=== PATIENT | male | born 1970 | race Caucasian/White ===

== ENCOUNTER 2018-08-22 17:13 | Outpatient (CLI) | payer OTHER ==
[~2018-08-22 17:13] MED LIST: ASPI-496 PO; LISI2.5T PO; LOVA10TA PO; METO25TA4 PO; OMEG1CAP2 PO; PRAS10TA4 PO
[2018-08-22] MEDS ORDERED: GADOBUTROL 10 MMOL/10 ML PFS ONE (18:56)
== END 2018-08-22 23:59 | disposition home or self-care (01) ==
LOC: RAD 17:13
PROVIDERS: ATTEND Surgery
DX: K60.3 Anal fistula (principal)
CPT/HCPCS: 72197; A9585

== ENCOUNTER 2020-07-05 16:00 | Outpatient (CLI) | payer OTHER ==
[~2020-07-05 16:00] MED LIST changes: +ASPI-614 PO; +ATOR-2 PO; +CYCL5TAB PO; +FENO134C PO; +HYDR-3237 PO; +LISI5TAB7 PO; +METO-282 PO; +SENN1TAB67 PO; +ZOLP10TA PO; +[UNRECOGNIZED DRUG - CODE] PO
== END 2020-07-05 23:59 | disposition home or self-care (01) ==
LOC: STAR 16:00
PROVIDERS: ATTEND Family Medicine
DX: Z20.822 Contact with and (suspected) exposure to COVID-19 (principal)
CPT/HCPCS: U0003

== ENCOUNTER 2020-07-09 09:01 | Day surgery (SDC) | payer OTHER ==
[~2020-07-09] VITALS: Ht 185.4 cm; Wt 98.8 kg
[2020-07-09] MEDS ORDERED: ROSU40TA PO (09:35)
[2020-07-09] MEDS ORDERED: METFORMIN PO (09:35)
[2020-07-09] MEDS ORDERED: LISI-167 PO (09:35)
[2020-07-09] MEDS ORDERED: CHLORHEXIDINE 15 ML UDC PO ONE (10:00)
[2020-07-09] MEDS ORDERED: LACTATED RINGERS 1,000 ML IV SCH (10:00)
[2020-07-09 10:10] VITALS: BP 133/85
[2020-07-09] MEDS ORDERED: MIDAZOLAM 1 MG/ML, 2ML ONE (10:28)
[2020-07-09] MEDS ORDERED: FENTANYL PF 100 MCG/2ML ONE (10:29)
[2020-07-09 10:31] LABS: ALBUMIN 4.4 g/dL (3.4-5.0); ANION GAP 4 mmol/L (5-15); CALCIUM 9.3 mg/dL (8.5-10.1); CHLORIDE 108 mmol/L (98-107)
[2020-07-09 10:35] LABS: ALANINE AMINOTRANSFERASE 66 U/L (12-78); ALKALINE PHOSPHATASE 82 U/L (45-117); BILIRUBIN,TOTAL 0.6 mg/dL (0.2-1.0); CREATININE 1.24 mg/dL (0.7-1.3)
[2020-07-09] MEDS ORDERED: hydrALAzine 20 MG/ML, 1ML IV PRN (11:00)
[2020-07-09] MEDS ORDERED: METOPROLOL 1 MG/ML, 5ML IV PRN (11:00)
[2020-07-09] MEDS ORDERED: LABETALOL 5MG/ML, 20ML IV PRN (11:00)
[2020-07-09] MEDS ORDERED: OXYcodone 5 MG/5 ML ORAL.SOL UDC PO PRN (11:00)
[2020-07-09] MEDS ORDERED: ALBUTEROL/IPRATROPIUM 2.5MG/0.5MG, 3 ML NPPB PRN (11:00)
[2020-07-09] MEDS ORDERED: ONDANSETRON 2MG/ML, 2ML IVPush PRN (11:00)
[2020-07-09] MEDS ORDERED: PROMETHAZINE 25 MG/ML, 1ML IVPush PRN (11:00)
[2020-07-09] MEDS ORDERED: ACETAMINOPHEN 325 MG TABLET PO PRN (11:00)
[2020-07-09] MEDS ORDERED: HALOPERIDOL 5 MG/ML IV PRN (11:00)
[2020-07-09] MEDS ORDERED: FENTANYL PF 100 MCG/2ML IV PRN (11:00)
[2020-07-09] MEDS ORDERED: HYDROmorphone 1 MG/ML, 1ML INJ IVPush PRN (11:00)
[2020-07-09] MEDS ORDERED: KETOROLAC 30 MG/1 ML IVPush PRN (11:00)
[2020-07-09] MEDS ORDERED: EPHEDRINE 50 MG/ML, 1ML IVPush PRN (11:00)
[2020-07-09] MEDS ORDERED: METHOCARBAMOL 1,000 MG in DEXTROSE 5% 100 ML IV PRN (11:00)
[2020-07-09] MEDS ORDERED: METOCLOPRAMIDE 5 MG/ML, 2ML IVPush PRN (11:00)
[2020-07-09] MEDS ORDERED: DEXMEDETOMIDINE 200 MCG/2 ML ONE (11:03)
[2020-07-09] MEDS ORDERED: PHENYLEPHRINE 10 MG/ML ONE (11:17)
[2020-07-09] MEDS ORDERED: PROPOFOL 10 MG/ML, 20ML ONE (11:17)
[2020-07-09] MEDS ORDERED: GADOTERATE 10 MMOL/20 ML VIAL ONE (12:14)
[2020-07-09] MEDS ORDERED: ACETAMINOPHEN 650 MG/20.3 ML UDC ONE (12:59)
[2020-07-09] MEDS ORDERED: OXYcodone 5 MG/5 ML ORAL.SOL UDC ONE (12:59)
== END 2020-07-09 14:50 | disposition home or self-care (01) ==
LOC: OUT 09:01 → EDSTATUS 10:45 → OUT 14:50
PROVIDERS: ATTEND Surgery
DX: K60.3 Anal fistula (principal); I10 Essential (primary) hypertension; E78.00 Pure hypercholesterolemia, unspecified; F41.9 Anxiety disorder, unspecified; M19.90 Unspecified osteoarthritis, unspecified site; I25.10 Atherosclerotic heart disease of native coronary artery without angina pectoris; F32.9 Major depressive disorder, single episode, unspecified; Z88.1 Allergy status to other antibiotic agents; Z88.0 Allergy status to penicillin; Z88.8 Allergy status to other drugs, medicaments and biological substances; Z79.82 Long term (current) use of aspirin; Z79.899 Other long term (current) drug therapy; Z98.890 Other specified postprocedural states; Z82.49 Family history of ischemic heart disease and other diseases of the circulatory system
CPT/HCPCS: 36415; 72197; 80053; 82962; 93005; A9575; J2250; J2370; J2704; J3010; J7120